=== PATIENT | female | born 1995 | race Caucasian/White ===

== ENCOUNTER → 2018-09-10 17:00 | Outpatient (CLI) | payer MEDICAID, SELFPAY ==
[2018-09-10 08:48] VITALS: BMI 41.7
== END ==
PROVIDERS: Referring Provider Nurse Practitioner Women's Health; Visit Provider Nurse Practitioner Women's Health
DX: O23.40 Unspecified infection of urinary tract in pregnancy, unspecified trimester (principal); Z3A.00 Weeks of gestation of pregnancy not specified
CPT/HCPCS: 87086; 87088

== ENCOUNTER 2018-09-16 08:47 | Emergency (ER) | payer MEDICAID, SELFPAY ==
[2018-09-10 08:48] VITALS: BMI 41.7
[2018-09-16 08:49] VITALS: BP 143/79; PULSE 99; RESP 18; TEMP 36.4; O2SAT 99; BMI 32.7
--- NOTE | 2018-09-16 09:12 | ED.VISSUMM ---
- ER Visit Summary Date of Service: 09/16/18 Chief Complaint: Right chest pain History of Present Illness: The patient is a 23 F who presents with right-sided chest pain that began yesterday. Patient states the pain is sharp and is worse with movement and with palpation. Patient states pain is localized to the right lower chest. Patient admits to some shortness of breath. Patient also admits to some intermittent headaches. Patient also admits to some urinary urgency but denies any dysuria or hematuria. Patient denies any nausea or vomiting. Patient states she is approximately 33 weeks . Patient states she talked to her SAND POLISHER office who told her to come to the emergency department. Physical Examination: Vital signs are stable except for slightly elevated blood pressure 143/79. Patient is afebrile. Patient is in no acute distress. Oromucosa is pink and moist. Neck is supple. Trachea is midline. There is no JVD noted. Heart was regular rate and rhythm. Lungs are clear and equal bilaterally. There is tenderness over the right lateral chest wall. There is no bony crepitance or step-off. Abdomen is soft. Bowel sounds are normal. There is no tenderness. There is no CVA tenderness noted. Cranial nerves II through XII are intact. There are no focal motor or sensory deficits noted. Test Results: CBC showed a mild leukocytosis of 12.8 and a mild anemia with hemoglobin of 11.8. Comprehensive metabolic profile was essentially within normal limits. Liver function test specifically were normal. Urinalysis does not show any evidence of urinary tract infection. D-dimer was elevated at 0.70. CTA of the chest was then obtained. Risks and benefits were explained with the patient she agreed to the test. CTA of the chest does not show any evidence of pulmonary embolism, aortic dissection, or pneumonia. Emergency Department Course and Treatment: Patient was instructed to continue Tylenol as needed for pain. Patient was instructed use ice to the area. Patient was instructed to follow-up with her SAND POLISHER in 3 to 5 days. Patient understood and was agreeable with the plan. All questions were answered. Disposition: Discharge home Impression: Right chest pain This note was generated with [employer] dictation software. It may contain incorrect words, spelling, and punctuation that were not noted in review of the chart prior to signing ED Disposition - Plan for ED Patient: Disposition: Home or Assisted Living Diagnosis: Right-sided chest pain Instructions: ED Chest Pain Atypical Unkn Cause Referrals: Care Physician,No Primary [Primary Care Provider] -
--- NOTE | 2018-09-16 09:15 | ED.DCSUM_ITS ---
- ER Visit Summary Date of Service: 09/16/18 Chief Complaint: Right chest pain History of Present Illness: The patient is a 23 F who presents with right-sided chest pain that began yesterday. Patient states the pain is sharp and is worse with movement and with palpation. Patient states pain is localized to the right lower chest. Patient admits to some shortness of breath. Patient also admits to some intermittent headaches. Patient also admits to some urinary urgency but denies any dysuria or hematuria. Patient denies any nausea or vomiting. Patient states she is approximately 33 weeks . Patient states she talked to her PRINT DECORATOR office who told her to come to the emergency department. Physical Examination: Vital signs are stable except for slightly elevated blood pressure 143/79. Patient is afebrile. Patient is in no acute distress. Oromucosa is pink and moist. Neck is supple. Trachea is midline. There is no JVD noted. Heart was regular rate and rhythm. Lungs are clear and equal bilaterally. There is tenderness over the right lateral chest wall. There is no bony crepitance or step-off. Abdomen is soft. Bowel sounds are normal. There is no tenderness. There is no CVA tenderness noted. Cranial nerves II through XII are intact. There are no focal motor or sensory deficits noted. Test Results: CBC showed a mild leukocytosis of 12.8 and a mild anemia with hemoglobin of 11.8. Comprehensive metabolic profile was essentially within normal limits. Liver function test specifically were normal. Urinalysis does not show any evidence of urinary tract infection. D-dimer was elevated at 0.70. CTA of the chest was then obtained. Risks and benefits were explained with the patient she agreed to the test. CTA of the chest does not show any evidence of pulmonary embolism, aortic dissection, or pneumonia. Emergency Department Course and Treatment: Patient was instructed to continue Tylenol as needed for pain. Patient was instructed use ice to the area. Patient was instructed to follow-up with her PRINT DECORATOR in 3 to 5 days. Patient understood and was agreeable with the plan. All questions were answered. Disposition: Discharge home Impression: Right chest pain This note was generated with [employer] dictation software. It may contain incorrect words, spelling, and punctuation that were not noted in review of the chart prior to signing ED Disposition - Plan for ED Patient: Disposition: Home or Assisted Living Diagnosis: Right-sided chest pain Instructions: ED Chest Pain Atypical Unkn Cause Referrals: Care Physician,No Primary [Primary Care Provider] -
[2018-09-16 09:22] VITALS: O2SAT 98
[2018-09-16 09:27] LABS: Absolute Lymphocyte Count 1.72 X10^3/ul (0.83-4.51); Basophil# 0.02 X10^3/uL; Basophil% 0.2 % (0-1); Eosinophil# 0.13 X10^3/uL; Hematocrit 33.9 % (37-47); Hemoglobin 11.8 g/dl (12.0-15.0); Lymphocyte # 1.72 X10^3/ul (4.0); Lymphocyte % 13.5 % (19-41); Mean Corp Hgb Conc 34.8 g/gl (32-36); Mean Corpuscular Hgb 30.6 pg (27.0-32.0); Mean Corpuscular Volume 87.8 fL (81-99); Mean Platelet Vol. 9.9 fl (6.2-12.0); Monocyte# 0.84 X10^3/uL; Monocyte% 6.6 % (0-10); Neutrophil # 10.01 X10^3/uL (2.7-7.7); Neutrophil % 78.2 % (47-70); Platelet Count 243 K/mm3 (150-450); RBC Distribution Width CV 13.3 % (11.6-14.6); RBC Distribution Width SD 40.9 fl (35.1-43.9); Red Blood Count 3.86 M/mm3 (4.2-5.4); White Blood Count 12.8 K/mm3 (4.4-11.0)
[2018-09-16 09:28] LABS: POSITIVE COUNT NO; POSITIVE DIFFERENTIAL NO; POSITIVE MORPHOLOGY NO
[2018-09-16 09:37] LABS: Partial Thromboplast Time 29.1 Seconds (24.1-36.2); Prothrombin Time (Protime)PT. 13.2 SECONDS (11.7-14.9)
--- NOTE | 2018-09-16 09:38 | ED.RN ---
lab resulted ddimer 0.70, florencia notified
[2018-09-16 09:42] LABS: ALB/GLOB Ratio 0.6 RATIO (0.9-2.4); AST(SGOT) 13 U/L (15-37); Alanine Aminotransfer ALT/SGPT 16 U/L (13-56); Albumin, Serum 2.5 g/dL (3.2-5.0); Alkaline Phosphatase 112 U/L (45-117); Anion Gap 9 (5-15); BUN 5 mg/dL (7-18); BUN/Creat Ratio 14.7 RATIO (10-20); Calcium,Total 8.2 mg/dL (8.5-10.1); Chloride 107 mmol/L (98-107); Creatinine, Serum 0.34 mg/dL (0.55-1.02); EST Glomerular Filtration Rate 250 mL/min (>60); Est Glom Filt Rate - Afr Amer 303 mL/min (>60); Estimated Creatinine Clearance 257.37 ml/min; Globulin 3.9 g/dL (2.2-4.2); Glucose 86 mg/dL (74-106); Potassium 3.8 mmol/L (3.5-5.1); Protein, Total 6.4 g/dL (6.4-8.2); Sodium Level 138 mmol/L (136-145)
--- NOTE | 2018-09-16 09:48 | CT_ITS ---
STUDY: CTA CHEST REASON FOR EXAM: Female, 23 years old. Elevated d-dimer. Shortness of breath. Dizziness. The patient is 33 weeks . The patient is shielded appropriately. RADIATION DOSAGE (If Supplied By Facility): CTDIvol = ( 11.44 ) mGy, DLP = ( 454.56 ) mGycm TECHNIQUE: The examination was performed with the intravenous administration of 100 IV Isovue 370. Post-processing of the angiographic images was performed, with multiplanar reformation and 3D reconstruction. Individualized dose optimization techniques were used for this CT. COMPARISON: None. FINDINGS: Soft tissue density in the anterior mediastinum most likely representing residual thymus. Normal enhancement of the main pulmonary artery and right and left pulmonary arteries. Normal enhancement of the bilateral peripheral pulmonary arteries. There is no demonstrated pulmonary embolism. Normal thoracic aorta and visualized great vessels. There is no demonstrated aortic dissection. Normal heart and pericardium. Normal mediastinum. Normal hilar regions. Normal visualized trachea and bronchi. The lungs are well expanded. Normal pulmonary parenchyma. Normal pleura. Normal chest wall structures. Normal osseous structures. Small hiatal hernia. CT/CTA Chest W/WO Contrast IMPRESSION: Normal CTA chest examination, without a demonstrated pulmonary embolism or arterial dissection. Electronically Signed: Igor Morrissey, at 10:34 EDT , Service support ,
[2018-09-16 09:55] LABS: Mucous, Urine 0 SEEN /hpf (<or=2+); Red Blood Cells-Urine 0 SEEN /hpf (0-5); Squamous Epithelial Cells - UA 0 SEEN /hpf (5-10); White Blood Cells 0 SEEN /hpf (0-5)
[2018-09-16 10:01] LABS: Color, Urine Straw (Yellow); Glucose, Dipstick Normal (Normal); Ketone-Dipstick Negative (Negative); Leukocyte Esterase-Dipstick Negative /ul (Negative); Nitrite-Dipstick Negative (Negative); Occult Blood-Urine Negative /ul (Negative); Protein-Dipstick Negative (Negative); Specific Gravity, Urine 1.005 (1.002-1.030); Urine Bilirubin Dipstick Negative (Negative); Urine Clarity Clear (Clear); Urine Urobilinogen Normal (Normal)
[2018-09-16 10:13] LABS: Bacteria RARE /hpf (None Seen)
[2018-09-16 11:10] VITALS: BP 120/88; PULSE 88; RESP 14; O2SAT 98
[2018-09-16 16:31] LABS: Protein, Urine (Random) < 6.0 mg/dL (<11.9)
== END 2018-09-16 11:12 | disposition home or self-care (01) ==
PROVIDERS: Nurse Practitioner Women's Health; Emergency Provider Emergency Medicine
DX: O26.93 Pregnancy related conditions, unspecified, third trimester (principal); O16.3 Unspecified maternal hypertension, third trimester; R07.9 Chest pain, unspecified; R74.8 Abnormal levels of other serum enzymes; R51 Headache; J45.909 Unspecified asthma, uncomplicated; O99.343 Other mental disorders complicating pregnancy, third trimester; F32.9 Major depressive disorder, single episode, unspecified; Z79.82 Long term (current) use of aspirin; Z79.899 Other long term (current) drug therapy; Z3A.33 33 weeks gestation of pregnancy
CPT/HCPCS: 71275; 76816; 80053; 81001; 82570; 84156; 85025; 85379; 85610; 85730; 99284; Q9967; A4216

== ENCOUNTER → 2018-09-16 16:05 | Outpatient (CLI) | payer MEDICAID, SELFPAY ==
[2018-09-16 08:49] VITALS: BMI 32.7
--- NOTE | 2018-09-16 16:06 | US_ITS ---
STUDY: SECOND AND THIRD TRIMESTER OBSTETRICAL ULTRASOUND - LIMITED REASON FOR EXAM: Female, 23 years old. Hypertension. . LMP: 02/02/2018 PRIOR ULTRASOUND: None. TECHNIQUE: Transabdominal ultrasound evaluation was performed. FINDINGS: Single live intrauterine gestation, variable presentation, cardiac rate 143 bpm. Placenta anterior, not low-lying, grade 1. Cervical length 3.7 cm, closed. Amniotic fluid index 21.91 cm, maximum vertical pocket 11.9 cm, polyhydramnios. The maternal adnexa are not characterized. BIOMETRY: Measurement centimeters. BPD: 8.61: 34 weeks, 6 days HC: 31.5: 35 weeks, 3 days AC: 30.27: 34 weeks, 2 days FL: 6.37: 33 weeks, 0 days Cephalic index 78%. Femur length/abdominal circumference 21%. Femur length/biparietal diameter 74%. Head circumference/abdominal circumference 1.04. Age by LMP: 32 weeks, 2 days. RODRIGO by LMP: 11/09/2018. age by current US: 34 weeks, 3 days. RODRIGO by current US: 10/25/2018. Estimated weight: 2333 grams, +/- 3.4 grams, 9th percentile. A complete anatomy survey was not performed. Limited anatomic images were obtained for assessment of dates, viability and positioning. In that limited survey, no gross anatomic abnormality was observed. US/OB Limited With Biometrics IMPRESSION: Polyhydramnios. Single live intrauterine gestation. Today's measurements are discordant with expected dates based on last menses. Electronically Signed: Gianluca Smith MD at 14:01 EDT Tel , Service support ,
== END ==
PROVIDERS: Referring Provider Obstetrics & Gynecology; Visit Provider Obstetrics & Gynecology
DX: O16.9 Unspecified maternal hypertension, unspecified trimester (principal); Z3A.00 Weeks of gestation of pregnancy not specified
CPT/HCPCS: 76816

== ENCOUNTER → 2018-10-15 14:23 | Outpatient (CLI) | payer MEDICAID, SELFPAY ==
[2018-10-15 09:19] VITALS: BMI 43.2
== END ==
PROVIDERS: Referring Provider Nurse Practitioner Women's Health; Visit Provider Nurse Practitioner Women's Health
DX: O09.93 Supervision of high risk pregnancy, unspecified, third trimester (principal); Z3A.00 Weeks of gestation of pregnancy not specified
CPT/HCPCS: 87081

== ENCOUNTER → 2018-10-21 13:55 | Outpatient (CLI) | payer MEDICAID, SELFPAY ==
[2018-10-15 09:19] VITALS: BMI 43.2
--- NOTE | 2018-10-21 13:59 | US_ITS ---
STUDY: SECOND AND THIRD TRIMESTER OBSTETRICAL ULTRASOUND - LIMITED REASON FOR EXAM: Female, 23 years old. growth. LMP: 02/02/2018 PRIOR ULTRASOUND: None. TECHNIQUE: Transabdominal TECHNICAL QUALITY: 09/16/2018 FINDINGS: There is a single intrauterine fetus. The fetus is in a transverse lie with the head on the maternal right side. There is demonstrated cardiac activity with a heart rate of 146 bpm. There is increased amniotic fluid volume consistent with polyhydramnios. The largest amniotic fluid pocket measures 14.4 cm. The amniotic fluid index (NORA) is 27.2 cm. The placenta is anterior in location and is not low lying. There are Grade 2 placental changes. The cervix is not visualized. BIOMETRY: BPD: 9.5: 38 weeks, 6 days HC: 35.2: 41 weeks, 1 days AC: 38.3: FL: 7.4: 37 weeks, 5 days Age by LMP: 37 weeks, 2 days. RODRIGO by LMP: 11/09/2018. age by prior US: 39 weeks, 3 days. RODRIGO by prior US: 10/25/2018. age by current US: 39 weeks, 2 days. RODRIGO by current US: 10/26/2018. Estimated weight: 4207 grams, +/- 614 grams, 98 percentile. Gender: US/OB Limited With Biometrics IMPRESSION: Single live fetus in a transverse presentation. survey not performed on this exam. Placenta is grade 2 and is not low-lying. Cervix is not visualized. age by current US: 39 weeks, 2 days. RODRIGO by current US: 10/26/2018. Estimated weight: 4207 grams, +/- 614 grams, 98 percentile. Electronically Signed: Vinny Flores MD at 15:22 EDT , Service support ,
== END ==
PROVIDERS: Referring Provider Nurse Practitioner Women's Health; Visit Provider Nurse Practitioner Women's Health
DX: O99.213 Obesity complicating pregnancy, third trimester (principal); Z3A.00 Weeks of gestation of pregnancy not specified
CPT/HCPCS: 76816

== ENCOUNTER → 2018-10-22 06:11 | Outpatient (CLI) | payer MEDICAID, SELFPAY ==
[2018-10-15 09:19] VITALS: BMI 43.2
== END ==
PROVIDERS: Referring Provider Obstetrics & Gynecology; Visit Provider Obstetrics & Gynecology
DX: O09.93 Supervision of high risk pregnancy, unspecified, third trimester (principal); Z3A.00 Weeks of gestation of pregnancy not specified
CPT/HCPCS: 36415; 83036; 87081

== ENCOUNTER → 2018-10-22 12:25 | Outpatient (CLI) | payer MEDICAID, SELFPAY ==
[2018-10-22 08:57] VITALS: BMI 43.2
--- NOTE | 2018-10-22 12:27 | US_ITS ---
STUDY: OBSTETRICAL ULTRASOUND - BIOPHYSICAL PROFILE REASON FOR EXAM: Female, 23 years old. well-being. LMP: February 02, 2018. PRIOR ULTRASOUND: Comparison is made with prior study dated October 21, 2018. TECHNIQUE: Transabdominal TECHNICAL QUALITY: Adequate. FINDINGS: There is a single intrauterine fetus. The fetus is in a transverse lie with the head on the maternal right side. There is demonstrated cardiac activity with a heart rate of 142 bpm. There is increased amniotic fluid consistent with polyhydramnios. The largest amniotic fluid pocket measures 14.3 sinus by 8.3 cm. The amniotic fluid index (NORA) is 38.89 cm. The placenta is anterior in location and is not low lying. There are Grade 0 placental changes. Age by LMP: 37 weeks, 3 days. RODRIGO by LMP: November 09, 2018. age by prior US: 39 weeks, 2 days. RODRIGO by prior US: October 26, 2018. BIOPHYSICAL PROFILE: Breathing Movements (FBM): 2 Gross Body Movements (GBM): 2 Tone (FT): 2 Amniotic Fluid Volume (AFV): 2 TOTAL SCORE: 8 / 8 US/Biophysical Profile IMPRESSION: Normal biophysical profile of 8/8. Polyhydramnios. Electronically Signed: Igor Morrissey, at 13:40 EDT , Service support ,
== END ==
PROVIDERS: Referring Provider Nurse Practitioner Women's Health; Visit Provider Nurse Practitioner Women's Health
DX: O36.8190 Decreased fetal movements, unspecified trimester, not applicable or unspecified (principal); O40.9XX0 Polyhydramnios, unspecified trimester, not applicable or unspecified; Z3A.37 37 weeks gestation of pregnancy
CPT/HCPCS: 36415; 76818; 83036; 87081

== ENCOUNTER 2018-11-02 10:00 | Inpatient (IN) | payer MEDICAID, SELFPAY ==
[2018-10-29 09:14] VITALS: BMI 43.2
[2018-11-02] VITALS (19 sets, daily range): BP systolic 96–132; BP diastolic 65–83; PULSE 80–104; RESP 16–20; TEMP 36.2–37.5; O2SAT 95–100; BMI 44.7
[2018-11-02] MEDS: Lactated Ringers 1,000 ML 999 ML IV (10:55)
[2018-11-02 11:15] LABS: Absolute Lymphocyte Count 1.63 X10^3/ul (0.83-4.51); Absolute Neutrophil Count 8.3 X10^3/uL (2.0-7.7); Basophil# 0.02 X10^3/uL; Basophil% 0.2 % (0-1); Eosinophils% 0.9 % (0-5); Hematocrit 32.6 % (37-47); Hemoglobin 11.1 g/dl (12.0-15.0); Lymphocyte # 1.63 X10^3/ul (4.0); Mean Corpuscular Hgb 29.1 pg (27.0-32.0); Mean Corpuscular Volume 85.6 fL (81-99); Mean Platelet Vol. 10.1 fl (6.2-12.0); Monocyte# 0.77 X10^3/uL; Monocyte% 7.1 % (0-10); Neutrophil # 8.28 X10^3/uL (2.7-7.7); Neutrophil % 76.4 % (47-70); Platelet Count 231 K/mm3 (150-450); RBC Distribution Width CV 13.7 % (11.6-14.6); RBC Distribution Width SD 42.5 fl (35.1-43.9); Red Blood Count 3.81 M/mm3 (4.2-5.4); White Blood Count 10.8 K/mm3 (4.4-11.0)
[2018-11-02 11:16] LABS: POSITIVE COUNT NO; POSITIVE DIFFERENTIAL NO; POSITIVE MORPHOLOGY NO
[2018-11-02] MEDS: Lactated Ringers 1,000 ML 150 ML IV (11:54)
[2018-11-02] MEDS: Sodium Citrate/Citric Acid 30 ML UDC PO (12:18)
[2018-11-02] MEDS: Cefazolin 2 GM in 0.9% Normal Saline 100 ML IV (12:28)
[2018-11-02] MEDS: Oxytocin 30 units/NS 500 ml 30 UNITS/500 ML IV.SOLN 167 UNITS IV (13:06)
[2018-11-02] MEDS: Ketorolac 30 MG/ML Syringe IV (13:19)
--- NOTE | 2018-11-02 13:52 | HP.PCM_ITS ---
- Problem List (1) History of narcotic addiction Status: Acute Comment: ten years ago, recommend tox screen. discussed perioperative pain management. support given. (2) Transverse lie of fetus Status: Acute Comment: primary (3) UTI in , antepartum Status: Acute Comment: urine culture next appt (4) Rubella non-immune status, antepartum Status: Acute Comment: MMR pp (5) Depression affecting Status: Acute Comment: was on pristiq, switch to zoloft (6) Obesity complicating , third trimester Status: Acute Comment: discussed weight gain and activity. (7) Status: Acute Qualifiers: Comment: carrier, genetics, and ntd screening declined. 1hr GCT 103 (8) Supervision of high risk in third trimester Status: Acute Comment: PRR RODRIGO 11/09/18 girl An Tristin History Date of Admission: 11/02/18 Final RODRIGO: 11/09/18 Gestational age: 39 Weeks and 0 Days History of this : This is a 23 year-old, , at 39 weeks gestational age presents for primary secondary to transverse lie and macrosomia. Medical History: Medical History (Last Reviewed 10/29/18 @ 08:37 by Yin Reardon) Anxiety and depression F41.9, F32.9 History of endometriosis Z87.42 Surgical History: Surgical History (Last Reviewed 10/29/18 @ 08:37 by Yin Reardon) History of cholecystectomy Z90.49 History of laparoscopy Z98.890 Allergies Sulfa (Sulfonamide Antibiotics) Adverse Reaction (Verified 11/02/18 10:48) Hives Home Medications: Home Medications vitamin#30 30 mg iron-10 mg iron-folic acid 1 mg-omg3 capsule 1 cap PO DAILY cap 08/27/18 ranitidine 75 mg tablet 75 mg PO BID 08/27/18 sertraline 50 mg tablet 50 mg PO DAILY 09/10/18 Nystatin 1 applic TOPICAL BID 11/02/18 Smoking Status: Former smoker Alcohol: None Number of Fetus(es): 1 Heart Tracin History Past Pregnancies: Past Pregnancies Delivery Date Name GA/Weeks Outcome Route Weight Gender Labor Length Anesthesia Delivery Location Provider FOB Labs: Mom's Labs & Results 11/02/18 11/02/18 10:55 10:55 WBC 10.8 RBC 3.81 L Hgb 11.1 L Hct 32.6 L MCV 85.6 MCH 29.1 MCHC 34.0 RDW 13.7 RDW Differential 42.5 Plt Count 231 MPV 10.1 Immature Gran % (Auto) 0.400 Neut % (Auto) 76.4 H Lymph % (Auto) 15.0 L [place] % (Auto) 7.1 Eos % (Auto) 0.9 Baso % (Auto) 0.2 Absolute Neuts (auto) 8.3 H Absolute Lymphs (auto) 1.63 Total Counted Not Reportable Blood Type O POSITIVE Antibody Screen NEGATIVE Course Did the patient receive Yes care? Labs Blood Type: O RH: POSITIVE RPR/VDRL/Syphilis Nonreactive Rubella status Equivocal HbSAg Negative Date Done: 04/07/18 Chlamydia Negative Gonorrhea Negative HIV/AIDS Non-Reactive Group B Strep: Negative Current Obstetrical History Gestational Diabetes No Incompetent Cervix No Infertility No IUGR No Macrosomia No Hypertension/Pre-eclampsia No Placenta Previa/Abruption No PTL/PROM No Uterine anomaly No Oligohydramnios No Polyhydramnios No Multiple gestation No Past Medical History Asthma Yes Diabetes No Hypertension No Heart disease No Mitral valve prolapse No Neurologic/Seizure disorder/ No Migraines Kidney disease No Liver disease No Varicosities No Clotting disorders/Hx of DVT No Thyroid Dysfunction No Other medical diseases No Psychiatric disorders Yes: anxiety/depression Major trauma No Abnormal PAP smear Yes: r/o HPV was not diagnosed Sleep apnea No Mammogram in the last 2 years No Medications Taken During Last Date/Time of Medication May 2018 Taken: [muscle relaxant - unknown name] Last Date/Time of Medication july 2018 Taken: [amoxicillin] Reason for taking medication [ discomfort muscle relaxant - unknown name ] Reason for taking medication [ kidney infection amoxicillin] Social History Marital Status: SINGLE Alleged father Tristin Dee Hx Smoking Yes Smoking Status Former smoker Expected Delivery Method: Scheduled Section Review of Systems Constitutional: Denies: Fever, Malaise Eyes: Denies: Blurred vision, Vision Change HEENT: Denies: Head Aches, Visual Changes Cardiovascular: Denies: Chest Pain, Palpitations Respiratory: Denies: Cough, Shortness of Breath, Wheezing Gastrointestinal: Denies: Abdominal Pain, Diarrhea, Nausea, Vomiting Genitourinary: Denies: Dysuria, Hematuria Musculoskeletal: Denies: Joint Pain, Muscle pain Skin: Denies: Lesions, Rash Neurological: Denies: Blurred vision, Focal weakness, Headaches Psychiatric: Denies: Anxiety, Depression Endocrine: Denies: Heat/ Cold Intolerance Hematologic/ Lymphatic: Denies: Easy Bruising, Easy Bleeding Physical Exam General: Alert, Cooperative, No apparent distress HEENT: Atraumatic, Normocephalic. Negative for: Thyromegaly, Lymphadenopathy Cardiovascular: Regular rate Lungs: Normal air movement Abdomen: Soft, Non Tender, Gravid Neurological: Deep Tendon Reflexes 2+/4 and Symmetrical, Neuro grossly intact. Negative for: Clonus METALLURGICAL LABORATORY ASSISTANT: Normal external genitalia. Negative for: Vulvar lesions Estimated gestational size: Large for gestational age Presentation: Transverse Assessment/Plan All Active Problems (Last Reviewed 10/29/18 @ 08:37 by Yin Reardon) History of narcotic addiction (Acute) Transverse lie of fetus (Acute) UTI in , antepartum (Acute) Rubella non-immune status, antepartum (Acute) Depression affecting (Acute) Obesity complicating , third trimester (Acute) (Acute) Supervision of high risk in third trimester (Acute) This is a 23 year-old, at 39 weeks gestational age transverse lie plan CS
--- NOTE | 2018-11-02 13:55 | OP.PCM_ITS ---
Problem List (1) History of narcotic addiction Status: Acute Comment: ten years ago, recommend tox screen. discussed perioperative pain management. support given. (2) Transverse lie of fetus Status: Acute Comment: primary (3) UTI in , antepartum Status: Acute Comment: urine culture next appt (4) Rubella non-immune status, antepartum Status: Acute Comment: MMR pp (5) Depression affecting Status: Acute Comment: was on pristiq, switch to zoloft (6) Obesity complicating , third trimester Status: Acute Comment: discussed weight gain and activity. (7) Status: Acute Qualifiers: Comment: carrier, genetics, and ntd screening declined. 1hr GCT 103 (8) Supervision of high risk in third trimester Status: Acute Comment: PRR RODRIGO 11/09/18 girl An Tristin Delivery Classification: Scheduled Final RODRIGO: 11/09/18 Gestational age: 39 Weeks and 0 Days Indications: transverse, macrosomia Description of Procedure: The patient is a 23 yo at 39 weeks presented for primary seco ndary to transverse. Spinal anesthesia was placed without difficulty. Cortez catheter was placed. The patient was placed in the dorsal supine position with leftward tilt. Patient was prepped and draped in the normal sterile fashion. Pfannenstiel skin incision was made with the scalpel and carried through to the underlying layer of fascia with the scalpel. Fascia was nicked in the midline and the incision extended laterally. The rectus bellies were dissected off superiorly and inferiorly with out complication both sharply and bluntly. The peritoneum was entered digitally. The incision was stretched laterally. the position of the was palpated and the infant was externally converted to vertex and a low transverse incision was made, The infant's head was delivered atraumatically followed by the anterior and posterior shoulders without complication the rest of the infant delivered. The cord was clamped and cut and the was handed off to awaiting nurse. The placenta was delivered spontaneously immediately following and was noted to be intact and have a three- vessel cord. The uterus was cleared of all clots and debris, and the incision was closed in a double layer closure using #1 Monocryl. The ovaries and fallopian tubes were noted to be within normal limits. The peritoneum was closed with 3-0 Monocryl in a running fashion. Fascia was closed with 0 PDS in a running fashion. Subcutaneous tissue was copiously irrigated and the skin was closed with 3-0 Monocryl in a subcuticular fashion. Steri-Strips and Mepilex dressing were applied without complication. Patient was taken to recovery in stable condition. Amniotic Membrane Rupture Type: Artificial Amniotic Fluid Description: Clear Placenta Disposition: [facility] Drain: Cortez to straight drain Cord Entanglement: None Esitmated Blood Loss (ml): 1100 Gender: Female Delayed cord clamping: Yes Pre-op Antibiotic Given: Ancef 2 grams IV x1 Pt instructed on risks of surgery: Bleeding, Anesthesia Risks, Infection Complications: None - Admit VTE Documentation VTE Present on Admission: No
[2018-11-02] MEDS: Lactated Ringers 1,000 ML 100 ML IV ×2 (16:47→23:03)
[2018-11-02] MEDS: Ondansetron ODT 4 MG Tablet PO (19:37)
[2018-11-02] MEDS: Lactated Ringers 500 ML 999 ML IV (20:10)
[2018-11-02] MEDS: Ketorolac 15 MG/ML Vial 30 MG IV (21:34)
[2018-11-02] MEDS: Enoxaparin 40 MG/0.4 ML Syringe SC (23:48)
[2018-11-03] VITALS (9 sets, daily range): BP systolic 109–134; BP diastolic 53–85; PULSE 78–90; RESP 16–18; TEMP 36.5–37.5; O2SAT 96–99
[2018-11-03] MEDS: Ketorolac 15 MG/ML Vial 30 MG IV ×3 (03:00→14:49)
[2018-11-03 04:58] LABS: Hematocrit 26.8 % (37-47); Hemoglobin 9.1 g/dl (12.0-15.0); Mean Corpuscular Hgb 29.2 pg (27.0-32.0); Mean Corpuscular Volume 85.9 fL (81-99); Mean Platelet Vol. 9.7 fl (6.2-12.0); Platelet Count 198 K/mm3 (150-450); RBC Distribution Width CV 13.7 % (11.6-14.6); RBC Distribution Width SD 42.8 fl (35.1-43.9); Red Blood Count 3.12 M/mm3 (4.2-5.4); White Blood Count 12.2 K/mm3 (4.4-11.0)
[2018-11-03 05:00] LABS: Scan Indicated on CBC? Y/N NO
--- NOTE | 2018-11-03 08:41 | PCM.PN.OB ---
Subjective: doing well no complaints pain controlled no CP SOB N V , ochia moderate. Baby in SCN due to blood glucose levels. Patient anxious to be up to nursery this am - Physical Exam General: Alert, Oriented x3 Abdomen: Non Tender, Non-Distended, - - Dressing dry and intact, FF below U Vital Signs Temp Pulse Resp BP Pulse Ox 98.1 F 88 16 122/65 H 99 11/03/18 06:00 11/03/18 06:00 11/03/18 08:00 11/03/18 06:00 11/03/18 08:00 Oxygen Delivery Method Room Air Weight: 294 lb 5.074 oz Body Mass Index (BMI) 44.7 Intake and Output for Last 24 Hours 11/01/18 11/02/18 11/03/18 23:59 23:59 23:59 Intake Total 4513 / 4513 Output Total 550 / 550 Balance 3963 / 3963 Laboratory Tests Past 24 Hrs 11/02/18 11/02/18 11/03/18 10:55 10:55 04:50 WBC 10.8 12.2 H RBC 3.81 L 3.12 L Hgb 11.1 L 9.1 L Hct 32.6 L 26.8 L MCV 85.6 85.9 MCH 29.1 29.2 MCHC 34.0 34.0 RDW 13.7 13.7 RDW Differential 42.5 42.8 Plt Count 231 198 MPV 10.1 9.7 Immature Gran % (Auto) 0.400 Neut % (Auto) 76.4 H Lymph % (Auto) 15.0 L [place] % (Auto) 7.1 Eos % (Auto) 0.9 Baso % (Auto) 0.2 Absolute Neuts (auto) 8.3 H Absolute Lymphs (auto) 1.63 Total Counted Not Reportable Blood Type O POSITIVE Antibody Screen NEGATIVE Medical Necessity - Tobacco Use Smoking Status: Former smoker Assessment/Plan All Active Problems (Last Reviewed 10/29/18 @ 08:37 by Yin Reardon) History of narcotic addiction (Acute) Transverse lie of fetus (Acute) UTI in , antepartum (Acute) Rubella non-immune status, antepartum (Acute) Depression affecting (Acute) Obesity complicating , third trimester (Acute) (Acute) Supervision of high risk in third trimester (Acute) s/p LTCS PPD # 1 1. routine post care 2. breast feeding- support given 3. rh positive 4. rubella nonimmune
[2018-11-03] MEDS: Enoxaparin 40 MG/0.4 ML Syringe SC (09:15)
[2018-11-03] MEDS: 0.9% Saline Lock 10 ML Syringe IV (14:49)
--- NOTE | 2018-11-03 16:17 | NURSING ---
Pt informed by tomography technologist that baby is being shipped to [place], pt very upset and crying. Support given by this RN. Pt asking if possible for her to be discharged to go be with her baby. This RN placed call to Dr Moody office and spoke with nurse to leave message with . Will hear back soon. Pt walked to [facility] to be with infant.
--- NOTE | 2018-11-03 17:04 | DCINST_ITS ---
Discharge Diet: No Restrictions Discharge Activity: May Not Drive - for 2 weeks, May not drive while taking narcotic pain medications., May Shower, May Take a Tub Bath - in 7 days May resume sexual activity in: 4-6 weeks Lifting Restrictions: 20 pounds Additional Activity Instructions:: Nothing in the vagina for 4-6 weeks. You may return to work/school in 6 weeks. Call your doctor if your incision/area has: Continuous Slow Oozing, Sudden Increased Bleeding, Increased Pain/ Swelling, Increased Redness, Foul Smelling Discharge Call your doctor if you observe: Fever of 101 or Higher, Using more than one pad per hour - for 2 hours Suture Line Care: Avoid Pulling/Pushing, Avoid Pinching/Bending Cleanse incision/area with: Keep Dressing Clean & Dry Additional Instructions: If you experience any of the following, contact your healthcare provider. * Bleeding that soaks a pad every hour for 2 hours * Fever 100.4 or higher * Unrelieved incision or abdominal pain * Swelling, redness, discharge or bleeding from your incision or episiotomy site * Your incision begins to separate * Problems urinating (including inability to urinate or burning while urinating). * Visual changes * Severe headache * Flu-like symptoms * Pain or redness in one of both of your breasts * Pain, warmth, tenderness or swelling in your legs, especially the calf area * Frequent nausea and vomiting * Symptoms of depression or anxiety If you experience any of the following, call 911 or go to the nearest Emergency Room. * Chest pain * Problems breathing * Seizure activity * Partial or complete paralysis of a body part, slurred speech, weakness or drooping of the face, or a sudden inability to walk or hold your balance Allergies/Adverse Reactions: Allergies Sulfa (Sulfonamide Antibiotics) Adverse Reaction (Verified 11/02/18 10:48) Hives Medications to take at Discharge vitamin#30 30 mg iron-10 mg iron-folic acid 1 mg-omg3 capsule 1 cap PO DAILY cap 08/27/18 ranitidine 75 mg tablet 75 mg PO BID 08/27/18 sertraline 50 mg tablet 50 mg PO DAILY 09/10/18 Nystatin 1 applic TOPICAL BID 11/02/18 Hydrocodone/Acetaminophen [[place] 5-325 Tablet] 1 each PO Q4H PRN PRN 4 Days #20 tablet 11/03/18 Naproxen [Naprosyn] 250 - 500 mg PO Q8H PRN PRN #30 tab 11/03/18 The following prescriptions were given: Naproxen [Naprosyn] 250 - 500 mg PO Q8H PRN PRN #30 tab PRN Reason: MILD PAIN Transmission Status: Pending to [facility] Hydrocodone/Acetaminophen [[place] 5-325 Tablet] 1 each PO Q4H PRN PRN 4 Days #20 tablet PRN Reason: Pain Transmission Status: Sent to [facility] Follow-Up: Call to make an appointment with your doctor for an incision check in 1-2 weeks. You will also need a 6 week post- follow up appointment. Test results from this visit will be discussed in further detail at your follow- up appointment, if applicable. Please Follow Up With: Rosetta Jansen MD - Call to make an appointment for an incision check in 1-2 [phone] When: You will need a post- check in 6 weeks. Primary Care Physician: Care Physician,No Primary [Primary Care Provider] -
--- NOTE | 2018-11-04 09:56 | CASEMGMT ---
Social Work Labor and Delivery Consult was received for maternal history of depression, anxiety, and history of substance abuse 10 years ago. From chart review delivery was the first for MOB, and first . Transfer of care to [place] from [place] at 30 weeks gestation. MOB had a caesarian section delivery and baby was transferred into the [facility] for issues related to blood sugars. Baby Josefina was 9 pounds 4 ounces, large for gestational age, and Apgars 8 and 9 at 1 and 5 minutes of life. Noted patient to have history of depression and anxiety, prior to was on Pristiq and changed to Zoloft at some point in this . 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 No drug testing noted prenatally or at delivery for mom or baby. This sheet writer is the assigned social work lecturer for the [facility] as well, so had planned to see patient for self and for baby in the SCN. Found today that baby was transferred to [facility] last evening and patient requested discharge at the same time. Per discussion with RN Alena Hernandez today, 11-04-2018, patient was tearful yesterday and had mentioned having a lot of stress though did not go into detail with the RN about what the stressors were. Called Melina Canales, , at [facility] NICU social work lecturer. Handoff report provided for continuity of care of this family and to ensure that social work follow up is done at [place]. No other services requested or indicated. -LUCY Hays, FULFILLMENT COORDINATOR
== END 2018-11-03 18:10 | disposition home or self-care (01) | DRG 540 ==
PROVIDERS: Admitting Provider Obstetrics & Gynecology; Referring Provider Obstetrics & Gynecology; Visit Provider Obstetrics & Gynecology
PROC: 10D00Z1 Extraction of Products of Conception, Low, Open Approach (ICD-10-PCS; CPT 59514; principal; 2018-11-02 11:45)
DX: O32.2XX0 Maternal care for transverse and oblique lie, not applicable or unspecified (principal); O36.63X0 Maternal care for excessive fetal growth, third trimester, not applicable or unspecified; J45.909 Unspecified asthma, uncomplicated; O99.214 Obesity complicating childbirth; O99.344 Other mental disorders complicating childbirth; F32.9 Major depressive disorder, single episode, unspecified; F41.9 Anxiety disorder, unspecified; Z79.899 Other long term (current) drug therapy; F11.21 Opioid dependence, in remission; Z87.42 Personal history of other diseases of the female genital tract; Z87.891 Personal history of nicotine dependence; Z90.49 Acquired absence of other specified parts of digestive tract; Z3A.39 39 weeks gestation of pregnancy; Z37.0 Single live birth
CPT/HCPCS: 85025; 85027; 86850; 86900; 99218; J7120; A4216; G0378; J2405

== ENCOUNTER 2021-07-09 09:56 | Emergency (ER) | payer MEDICAID, SELFPAY ==
[2021-07-09 09:57] VITALS: BP 157/96; PULSE 94; RESP 16; TEMP 36; O2SAT 100; BMI 38.7
--- NOTE | 2021-07-09 10:14 | CT_ITS ---
STUDY: CT ABDOMEN AND PELVIS WITH CONTRAST REASON FOR EXAM: Female, 26 years old. Bloody stool. One week history of left lower quadrant pain. RADIATION DOSAGE (If Supplied By Facility): CTDIvol = ( 16.78 ) mGy, DLP = ( 1221.82 ) mGycm TECHNIQUE: Transaxial images were obtained from the dome of the diaphragm to the symphysis pubis without oral contrast. IV 100mL Isovue-300 was administered. Sagittal and coronal images were reconstructed. Individualized dose optimization techniques were used for this CT. COMPARISON: None. FINDINGS: The visualized lung bases are unremarkable. The visualized portions of the heart are within normal limits. Normal liver. The patient is status post cholecystectomy. Normal spleen. Normal pancreas. Normal bilateral adrenal glands. Normal right kidney. Normal left kidney. Normal visualized stomach. Normal small intestine. Is evidence of pancolitis. The appendix is visualized and appears normal. Normal abdominal aorta. Normal inferior vena cava. Normal retroperitoneum. Normal urinary bladder. IUD is seen within the uterus. Small follicles are seen in both ovaries. Normal abdominal wall. Normal osseous structures. CT/Abdomen/Pelvis W IV Cont ONLY IMPRESSION: Pancolitis. Electronically Signed: Igor Morrissey MD at 12:14 EST ,
--- NOTE | 2021-07-09 10:15 | ED.VIS.GI ---
HPI HPI - GI History of Present Illness Chief Complaint: GI Bleed Narrative Narrative: Patient with past medical history of depression and anxiety, does not take blood thinners, presents with rectal bleeding that she has had for the last week. She states that 1 week ago, she had bright red blood per rectum with a bowel movement. She then developed left lower quadrant abdominal pain and cramping. She does have history of IBS diagnosed at 14 years old after they had removed her gallbladder. Hence, she states the consistency of her stool varies. She thought her bleeding had resolved, but the other day she had 3 episodes of bright red blood per rectum. She denies any pain with defecation. No chest pain or shortness of breath. No lightheadedness. She developed pain in the left lower quadrant of her abdomen. [facility] Medical History (Updated 07/09/21 @ 13:16 by Isiah Hauser MD) Anxiety and depression History of endometriosis Home Medications aripiprazole 10 mg PO QHS 07/09/21 [History Last Taken Unknown] ciprofloxacin HCl [Cipro] 500 mg PO BID #20 tab 07/09/21 [Rx Last Taken Unknown] metronidazole 500 mg PO BID #20 tab 07/09/21 [Rx Last Taken Unknown] prednisone 40 mg PO DAILY #28 tab 07/09/21 [Rx Last Taken Unknown] sertraline [Zoloft] 100 mg PO DAILY 07/09/21 [History Last Taken Unknown] Allergy/AdvReac Type Severity Reaction Status Date / Time Sulfa (Sulfonamide AdvReac Hives Verified 07/09/21 09:59 Antibiotics) Family History Mother Hypertension Grandmother Cancer lung- smoker Diabetes Surgical History History of cholecystectomy History of laparoscopy Social History Smoking Status: Current every day smoker tobacco type: e-cigarettes alcohol intake: never substance use type: does not use caffeine: Yes what type of physical activity do you participate in: walking seatbelt use: always do you feel safe at home: Yes additional social history: [employer] and [employer] Patient stays at home ROS ROS ED ROS Narrative Constitutional: No fever, no chills. HEENT: No sore throat. No neck pain. No loss of vision. No rhinorrhea. Cardiovascular: No chest pain. No palpitations. No pedal edema. Respiratory: No cough, no shortness of breath. Abdominal: Left lower quadrant abdominal pain. No nausea. No vomiting. Bright red blood per rectum. Genitourinary: No dysuria. No hematuria. Musculoskeletal: No myalgias. No arthralgias. Neurologic: No headaches. No dizziness. No lightheadedness. Skin: No rash. No change in color. Psychiatric: No depression. No anxiety. EXAM Physical Exam Narrative Exam Narrative: Afebrile. Vital signs noted. HEENT: Normocephalic. Atraumatic. PERRL, EOMI. Neck soft and supple. No point tenderness or step off. Cardiovascular: Regular rate and rhythm. No murmurs, rubs, or gallops appreciated. Respiratory: No tachypnea. Lungs clear to auscultation bilaterally. Gastrointestinal: Abdomen soft, mild tenderness palpation left lower quadrant, with normoactive bowel sounds. No rebound or guarding. Neurological: Awake. Alert. Nonfocal, nonlateralizing. Skin: No rash. Normal color. No noted pallor. Musculoskeletal: No pedal edema. Full range of motion extremities. Const Vital Signs: 07/09/21 09:57 07/09/21 12:27 Temperature 96.8 F L 98 F Temperature Source Temporal Temporal Pulse Rate 94 80 Respiratory Rate 16 14 Blood Pressure 157/96 H 141/93 H Blood Pressure Mean 116 109 Pulse Ox 100 99 Oxygen Delivery Method Room Air Room Air MDM MDM MDM Narrative Medical decision making narrative: Comprehensive work-up was pursued. Suspicion is higher for internal hemorrhoid versus diverticular bleeding. I also discussed AV malformation with the patient and her . She will most likely need follow-up with gastroenterology. CBC is grossly normal, normal hemoglobin. Chaperoned rectal examination showed no evidence of acute GI bleeding or hemorrhage, no hemorrhoid. Occult stool sample was negative for blood. She has an elevated chloride of 111, but electrolytes otherwise unremarkable. Serum negative. Urinalysis showed no evidence of infection. She is not having dysuria. Her CT showed pancolitis. I was able to speak with Dr. Wiley with gastroenterology. He would like an ESR, CRP, and LDH added and he will check the results. Additionally, he would like the patient on ciprofloxacin twice a day and Flagyl 2 times a day for the next 10 days along with a prednisone burst for 2 weeks of 40 mg. She will follow up with him as an outpatient. At this point in time, I feel she can be discharged safely home with follow-up. She is returning with any increased bleeding, pain, new or worsening symptoms. Disposition is discharged home in stable condition. Lab Data Attestation: I reviewed the patient's lab results. Labs: Laboratory Results - last 24 hr 07/09/21 07/09/21 07/09/21 10:36 10:36 10:36 WBC Cancelled Corrected WBC Cancelled RBC Cancelled Hgb Cancelled Hct Cancelled MCV Cancelled MCH Cancelled MCHC Cancelled RDW Std Deviation Cancelled RDW Coeff of Thony Cancelled Plt Count Cancelled MPV Cancelled Immature Gran % (Auto) Cancelled Neut % (Auto) Cancelled Lymph % (Auto) Cancelled [place] % (Auto) Cancelled Eos % (Auto) Cancelled Baso % (Auto) Cancelled Absolute Neuts (auto) Cancelled Absolute Lymphs (auto) Cancelled Total Counted Cancelled Neutrophils % (Manual) Cancelled Band Neutrophils % Cancelled Lymphocytes % (Manual) Cancelled Monocytes % (Manual) Cancelled Eosinophils % (Manual) Cancelled Basophils % (Manual) Cancelled Metamyelocytes % Cancelled Myelocytes % Cancelled Promyelocytes % Cancelled Blast Cells % Cancelled Plasma Cell % (Manual) Cancelled Other Cells % Cancelled Nucleated RBC % Cancelled Nucleated RBCs/100 WBC Cancelled Differential Comment Cancelled Diff Path Review Cancelled Hypersegmented Neuts Cancelled Atypical Lymphocytes Cancelled Reactive Lymphocytes Cancelled Smudge Cells Cancelled Toxic Granulation Cancelled Toxic Vacuolation Cancelled Dohle Bodies Cancelled Beba Rods Cancelled Platelet Estimate Cancelled Plt Morphology Comment Cancelled RBC Morphology Cancelled Polychromasia Cancelled Hypochromasia Cancelled Poikilocytosis Cancelled Basophilic Stippling Cancelled Anisocytosis Cancelled Microcytosis Cancelled Macrocytosis Cancelled Spherocytes Cancelled Sickle Cells Cancelled Target Cells Cancelled Tear Drop Cells Cancelled Ovalocytes Cancelled Stomatocytes Cancelled [place] Bodies Cancelled [place] Cells Cancelled Bite Cells Cancelled Crenated Cell Cancelled Acanthocytes (Spur) Cancelled Rouleaux Cancelled Schistocytes Cancelled Sodium 140 Potassium 3.7 Chloride 111 H Carbon Dioxide 25.0 Anion Gap 4 L BUN 8 Creatinine 0.62 Estim Creat Clear Calc 137.49 Est GFR (MDRD) Af Amer 149 Est GFR (MDRD) Non-Af 123 BUN/Creatinine Ratio 13.0 Glucose 80 Calcium 8.7 Total Bilirubin 0.40 AST 10 L ALT 11 L Alkaline Phosphatase 84 Total Protein 7.1 Albumin 3.6 Globulin 3.5 Albumin/Globulin Ratio 1.0 Serum , Qual NEGATIVE Urine Color Urine Clarity Urine pH Ur Specific [place] Urine Protein Urine Glucose (UA) Urine Ketones Urine Occult Blood Urine Nitrite Urine Bilirubin Urine Urobilinogen Ur Leukocyte Esterase Urine RBC Urine WBC Ur Squamous Epith Cells Urine Bacteria Urine Mucus 07/09/21 07/09/21 10:55 12:05 WBC 8.3 Corrected WBC RBC 4.52 Hgb 13.0 Hct 39.3 MCV 86.9 MCH 28.8 MCHC 33.1 RDW Std Deviation 45.2 H RDW Coeff of Thony 14.1 Plt Count 254 MPV 9.8 Immature Gran % (Auto) 0.200 Neut % (Auto) 62.3 Lymph % (Auto) 28.0 [place] % (Auto) 7.3 Eos % (Auto) 1.7 Baso % (Auto) 0.5 Absolute Neuts (auto) 5.2 Absolute Lymphs (auto) 2.33 Total Counted Neutrophils % (Manual) Band Neutrophils % Lymphocytes % (Manual) Monocytes % (Manual) Eosinophils % (Manual) Basophils % (Manual) Metamyelocytes % Myelocytes % Promyelocytes % Blast Cells % Plasma Cell % (Manual) Other Cells % Nucleated RBC % 0 Nucleated RBCs/100 WBC Differential Comment Diff Path Review Hypersegmented Neuts Atypical Lymphocytes Reactive Lymphocytes Smudge Cells Toxic Granulation Toxic Vacuolation Dohle Bodies Beba Rods Platelet Estimate Plt Morphology Comment RBC Morphology Polychromasia Hypochromasia Poikilocytosis Basophilic Stippling Anisocytosis Microcytosis Macrocytosis Spherocytes Sickle Cells Target Cells Tear Drop Cells Ovalocytes Stomatocytes [place] Bodies [place] Cells Bite Cells Crenated Cell Acanthocytes (Spur) Rouleaux Schistocytes Sodium Potassium Chloride Carbon Dioxide Anion Gap BUN Creatinine Estim Creat Clear Calc Est GFR (MDRD) Af Amer Est GFR (MDRD) Non-Af BUN/Creatinine Ratio Glucose Calcium Total Bilirubin AST ALT Alkaline Phosphatase Total Protein Albumin Globulin Albumin/Globulin Ratio Serum , Qual Urine Color Yellow Urine Clarity Sl. Cloudy Urine pH 7.0 Ur Specific [place] 1.005 Urine Protein Negative Urine Glucose (UA) Normal Urine Ketones Negative Urine Occult Blood Negative Urine Nitrite Negative Urine Bilirubin Negative Urine Urobilinogen Normal Ur Leukocyte Esterase 100 H Urine RBC 0 SEEN Urine WBC 10-25 SEEN Ur Squamous Epith Cells 0-5 SEEN Urine Bacteria 0 SEEN Urine Mucus 0 SEEN Radiography Diagnostic Testing: Clinical Impression(s) from Imaging Studies Abdomen/Pelvis CT 07/09/21 10:14 IMPRESSION: Pancolitis. Electronically Signed: Igor Morrissey MD at 12:14 EST , Discharge Plan Triage Chief Complaint: GI Bleed ED Provider: Isiah Hauser Dx/Rx/DC Orders Clinical Impression: Pancolitis, Blood in stool Instructions: ED Understanding Colitis Prescriptions: New ciprofloxacin HCl [Cipro] 500 mg tablet 500 mg PO BID Qty: 20 RF: 0 metronidazole 500 mg tablet 500 mg PO BID Qty: 20 RF: 0 prednisone 20 mg tablet 40 mg PO DAILY Qty: 28 RF: 0 No Action aripiprazole 10 mg Tablet 10 mg PO QHS RF: 0 sertraline [Zoloft] 50 mg tablet 100 mg PO DAILY RF: 0 Primary Care Provider: Care Physician,No Primary Referrals: Friend,Patrice, [STAFF PHYSICIAN] - 1-2 Weeks Care Physician,No Primary [Primary Care Provider] - Disposition Disposition: Home, Self Care
[2021-07-09] MEDS: 0.9% Normal Saline 1,000 ML 1000 ML IV (10:30)
[2021-07-09 10:56] LABS: AST(SGOT) 10 U/L (15-37); Alanine Aminotransfer ALT/SGPT 11 U/L (13-56); Albumin, Serum 3.6 g/dL (3.2-5.0); Alkaline Phosphatase 84 U/L (45-117); Anion Gap 4 (5-15); BUN 8 mg/dL (7-18); Calcium,Total 8.7 mg/dL (8.5-10.1); Chloride 111 mmol/L (98-107); Creatinine, Serum 0.62 mg/dL (0.55-1.02); EST Glomerular Filtration Rate 123 mL/min (>60); Est Glom Filt Rate - Afr Amer 149 mL/min (>60); Estimated Creatinine Clearance 137.49 ml/min; Globulin 3.5 g/dL (2.2-4.2); Glucose 80 mg/dL (74-106); Potassium 3.7 mmol/L (3.5-5.1); Protein, Total 7.1 g/dL (6.4-8.2); Sodium Level 140 mmol/L (136-145)
[2021-07-09 11:00] LABS: Absolute Lymphocyte Count 2.33 X10^3/uL (0.83-4.51); Absolute Neutrophil Count 5.2 X10^3/uL (2.0-7.7); Basophil# 0.04 X10^3/uL; Basophil% 0.5 % (0-1); Eosinophil# 0.14 X10^3/uL; Eosinophils% 1.7 % (0-5); Hematocrit 39.3 % (37-47); Lymphocyte # 2.33 X10^3/ul (0.83-4.51); Mean Corp Hgb Conc 33.1 g/dL (32-36); Mean Corpuscular Hgb 28.8 pg (27.0-32.0); Mean Corpuscular Volume 86.9 fL (81-99); Mean Platelet Vol. 9.8 fl (6.2-12.0); Monocyte# 0.61 X10^3/uL; Monocyte% 7.3 % (0-10); NRBC Flagged by Analyzer 0 % (0-5); Neutrophil # 5.18 X10^3/uL (2.7-7.7); Neutrophil % 62.3 % (47-70); Platelet Count 254 K/mm3 (150-450); RBC Distribution Width CV 14.1 % (11.6-14.6); RBC Distribution Width SD 45.2 fl (35.1-43.9); Red Blood Count 4.52 M/mm3 (4.2-5.4); White Blood Count 8.3 K/mm3 (4.4-11.0)
[2021-07-09 11:04] LABS: Internal QC Validated? YES +Cl - CLEAR BKGD; Pregnancy, Serum, hCG Quali. NEGATIVE Negative
[2021-07-09 12:18] LABS: Bacteria 0 SEEN /hpf (None Seen); Mucous, Urine 0 SEEN /hpf (<or=2+); Red Blood Cells-Urine 0 SEEN /hpf (0-5)
[2021-07-09 12:22] LABS: Color, Urine Yellow (Yellow); Glucose, Dipstick Normal (Normal); Ketone-Dipstick Negative (Negative); Leukocyte Esterase-Dipstick 100 /ul (Negative); Nitrite-Dipstick Negative (Negative); Occult Blood-Urine Negative /ul (Negative); Protein-Dipstick Negative (Negative); Specific Gravity, Urine 1.005 (1.002-1.030); Urine Bilirubin Dipstick Negative (Negative); Urine Clarity Sl. Cloudy (Clear); Urine Urobilinogen Normal (Normal)
[2021-07-09 12:27] VITALS: BP 141/93; PULSE 80; RESP 14; TEMP 36.6; O2SAT 99
[2021-07-09 12:32] LABS: Squamous Epithelial Cells - UA 0-5 SEEN /hpf (5-10); White Blood Cells 10-25 SEEN /hpf (0-5)
[2021-07-09 13:40] LABS: Erythrocyte Sedimentation Rate 8 mm/hr (0-30)
[2021-07-09 13:46] LABS: CRP 4.19 mg/L (0.0-3.0); LDH 119 U/L (84-246)
== END 2021-07-09 13:36 | disposition home or self-care (01) ==
PROVIDERS: Emergency Provider Emergency Medicine; Visit Provider Emergency Medicine
DX: K51.011 Ulcerative (chronic) pancolitis with rectal bleeding (principal); F32.A Depression, unspecified; F41.9 Anxiety disorder, unspecified; F17.290 Nicotine dependence, other tobacco product, uncomplicated; Z79.899 Other long term (current) drug therapy
CPT/HCPCS: 74177; 80053; 81001; 82274; 83615; 84703; 85025; 85652; 86140; 96360; 96361; 99283; J7030; Q9967; A4216

== ENCOUNTER 2021-08-06 10:17 | Outpatient (CLI) | payer MEDICAID, SELFPAY ==
[2021-08-07 13:30] LABS: Giardia Lamblia, Stool EIA Negative (Negative)
[2021-08-08 18:41] LABS: Calprotectin, Stool <16 ug/g (0-120)
== END 2021-08-06 23:59 | disposition home or self-care (01) ==
LOC: LAB 10:19
PROVIDERS: Visit Provider Nurse Practitioner Adult Health
DX: K62.5 Hemorrhage of anus and rectum (principal); R19.7 Diarrhea, unspecified; R10.9 Unspecified abdominal pain
CPT/HCPCS: 36415; 83630; 83993; 87177; 87209; 87329; 87493; 87506

== ENCOUNTER 2021-08-20 09:23 | Outpatient (CLI) | payer MEDICAID, SELFPAY ==
--- NOTE | 2021-08-20 09:25 | US_ITS ---
STUDY: ULTRASOUND BREAST - RIGHT REASON FOR EXAM: Female, 26 years old. Pain in the upper outer quadrant of the right breast. TECHNIQUE: Axial and longitudinal images of the RIGHT breast were performed with a high resolution ultrasound transducer. # OF IMAGES: 40 COMPARISON: Comparison is made with prior mammogram done earlier today. FINDINGS: RIGHT Breast: The upper outer quadrant of the right breast was examined by ultrasound. No sonographic abnormality is seen. US/Breast Limited Unilateral IMPRESSION: No sonographic abnormality is seen. ASSESSMENT CATEGORY: BIRADS Category 1: Negative. A letter regarding these results will be sent to the patient by the facility within 30 days. Electronically Signed: Igor Morrissey MD at 11:09 EDT ,
--- NOTE | 2021-08-20 09:25 | BI_ITS ---
MAMMOGRAPHY - BILATERAL DIAGNOSTIC REASON FOR EXAM: Female, 26 years old. Eight-month history of a sharp pain in the upper outer quadrant of the right breast as well as in the periareolar region. PERTINENT HISTORY: Non-contributory. TECHNIQUE: Digital bilateral breast gisselle (3D mammographic acquisition) in the CC and MLO projections. 2-D mediolateral oblique (MLO) and craniocaudad (CC) views of both breasts were obtained. CAD: Full Field Digital Mammography with Computer Added Detection was performed. COMPARISON: None. Baseline examination. FINDINGS: Breast Composition: The breasts are extremely dense, which lowers the sensitivity of mammography. There are no dominant masses or suspicious calcifications. No other significant abnormalities are identified. BI/DIAG MAMM W/CAD, BILAT IMPRESSION: Negative diagnostic mammogram. With the patient''s history of sharp right breast pain, correlation with ultrasound is recommended. ASSESSMENT CATEGORY: BIRADS Category 0: Incomplete. Need additional imaging evaluation. A letter regarding these results will be sent to the patient by the facility within 30 days. Approximately 10% of breast cancers are not detected by mammography. A normal mammogram should not delay biopsy of a clinically suspicious abnormality. Electronically Signed: Igor Morrissey MD at 10:55 EDT ,
== END 2021-08-20 23:59 | disposition home or self-care (01) ==
LOC: OPBI 09:24
PROVIDERS: Referring Provider Obstetrics & Gynecology; Visit Provider Obstetrics & Gynecology
DX: N64.4 Mastodynia (principal)
CPT/HCPCS: 77062; 76642; 77066; G0279

== ENCOUNTER 2021-08-28 15:09 | Outpatient (CLI) | payer MEDICAID, SELFPAY ==
[2021-08-28 15:43] LABS: Vitamin B12 528 pg/mL (211-911)
[2021-08-28 16:04] LABS: AST(SGOT) 8 U/L (15-37); Alanine Aminotransfer ALT/SGPT 16 U/L (13-56); Albumin, Serum 3.8 g/dL (3.2-5.0); Alkaline Phosphatase 81 U/L (45-117); Bilirubin, Direct < 0.05 mg/dL (0.00-0.30); Ferritin 16 ng/mL (8-252); Free T3 2.6 pg/mL (2.18-3.98); Globulin 3.6 g/dL (2.2-4.2); Iron 54 ug/dL (50-170); Iron Binding Capacity,Total 364 ug/dL (250-450); PERCENT IRON SATURATION 14.8 % (15.0-55.0); Protein, Total 7.4 g/dL (6.4-8.2); T4 Free Direct 0.84 ng/dL (0.76-1.46); Thyroid Stim Hormone (TSH) 2.28 uIU/mL (0.358-3.74)
[2021-08-28 16:08] LABS: International Normalized Ratio 1.1; Prothrombin Time (Protime)PT. 13.6 SECONDS (11.7-14.9)
[2021-08-31 17:07] LABS: Anti-Centromere B Ab <0.2 AI (0.0-0.9); Anti-Chromatin <0.2 AI (0.0-0.9); Anti-Jo <0.2 AI (0.0-0.9); Anti-Scleroderma-70 AB <0.2 AI (0.0-0.9); RNP Ab 0.4 AI (0.0-0.9); SJOGREN'S Anti-SS-A test < 0.2 AI (0.0-0.9); SJOGREN'S Anti-SS-B test < 0.2 AI (0.0-0.9); Smith Ab <0.2 AI (0.0-0.9)
[2021-09-01 20:07] LABS: Endomysial Antibody IgA Negative (Negative); Immunoglobulin A 93 mg/dL (87-352)
[2021-09-01 20:28] LABS: Anti-dsDNA Ab <1 IU/mL (0-9); Vitamin D 1,25-Dihydroxy 40.1 pg/mL (19.9-79.3)
[2021-09-02 14:32] LABS: Gastrin, Serum 92 pg/mL (0-115); Thyroid Peroxidase AB 17 IU/mL (0-34); t-Transglutaminase IgA <2 U/mL (0-3)
== END 2021-08-28 23:59 | disposition home or self-care (01) ==
LOC: LAB 15:10
PROVIDERS: Referring Provider Nurse Practitioner Adult Health; Visit Provider Nurse Practitioner Adult Health
DX: R79.82 Elevated C-reactive protein (CRP) (principal); R53.83 Other fatigue; R19.7 Diarrhea, unspecified
CPT/HCPCS: 36415; 80076; 82607; 82652; 82728; 82784; 82941; 83036; 83516; 83540; 83550; 84439; 84443; 84481; 85610; 86225; 86235; 86255; 86376